=== PATIENT | female | born 1980 | race Caucasian/White ===

== ENCOUNTER 2021-01-03 12:53 | Emergency (ER) | payer OTHER, SELFPAY ==
[2021-01-03 13:59] VITALS: BP 131/91; PULSE 108; RESP 18; TEMP 36.5; O2SAT 100; BMI 25.3
--- NOTE | 2021-01-03 14:12 | ED.EPISTAXIS ---
History of Present Illness General Chief Complaint: Epistaxis Stated Complaint: nosebleed Time Seen by Provider: 01/03/21 14:05 Source: patient Mode of arrival: ambulatory Limitations: no limitations History of Present Illness Location: Yes bilateral nares Onset/current episode: Yes hour(s) (1) Duration: Yes now resolved Context: Yes history of previous nose bleed Treatment prior to arrival: Yes nose pinching Related Data Previous Rx's Medication Instructions Recorded amoxicillin 875 mg-potassium 1 tab PO BID #14 tab 01/03/21 clavulanate 125 mg tablet (Augmentin) hydrocodone 5 mg-acetaminophen 325 1 tab PO Q6H PRN #10 tab 01/03/21 mg tablet ondansetron 4 mg disintegrating 4 mg PO Q8H PRN #20 tab 01/03/21 tablet Allergies Allergy/AdvReac Type Severity Reaction Status Date / Time No Known Allergies Allergy Verified 01/03/21 14:16 Review of Systems Review of Systems: Constitutional : No Fever, No Chills ENT/Mouth : No Ear Pain, No Nasal Congestion, positive nose bleed Eyes: No Eye Pain, No Swelling, No Redness Cardiovascular : No Chest Pain, No SOB Respiratory : No Cough, No Sputum Gastrointestinal : No Nausea, No Vomiting, No Diarrhea Genitourinary : No Dysuria, No Hematuria Musculoskeletal : No joint pain, No Myalgias Skin : No Skin Lesions, No rash Neuro : No Weakness, No Numbness, No headache Psych : No Anxiety/Panic, No Depression Heme/Lymph: positive Bleeding,No Lymphadenopathy Endocrine : No Polyuria, No Polydipsia PMFSH Past Medical History Attestation statement: The following information was validated with the patient. Medical History Lupus Social History Social History (Updated 01/03/21 @ 14:24 by Carissa Nails DO) Patient Tobacco Use Status: Never used Tobacco Advance Directives: No Advance Directives Information Provided: No Patient : No Physical Exam Vital Signs: Vital Signs: Last Vital Signs Temp 97.7 F 01/03/21 13:59 Pulse 100 01/03/21 14:51 Resp 16 01/03/21 14:51 BP 140/87 H 01/03/21 14:51 Pulse Ox 98 01/03/21 14:51 Body Mass Index 25.3 Appearance: Alert. Oriented X3. No acute distress. Eyes: Pupils equal, round and reactive to light. ENT: Pharynx normal. no blood in oropharynx dried blood L nares, clot noted mid septum no bleeding R nare - resolved Neck: Normal inspection. Neck supple. CVS: Normal heart rate and rhythm. Pulses normal. Respiratory: No respiratory distress. Breath sounds normal. Abdomen: Soft and non-tender. Skin: Skin warm and dry. Normal skin color. Normal skin turgor. Extremities: No lower extremity edema. Neuro: Oriented X 3. No motor deficit. No sensory deficit. Course Course Course Narrative: no further bleeding noted - topical medications was resolved on arrival no bleeding x almost 3 hours stable for DC, the patient describes sinus like illness prior to this and blocked ears - no hemotympanum seen will treat for sinusitis MDM - Epistaxis MDM Narrative Medical decision making narrative: 40 female hx of lupus no prior issues with bleeding comes in with c/o bilateral epistaxis without trauma - at this time no sig bleeding it has mostly resolved, she denies trauma, no other reported bleeding - will try local measures and try to cauterize the area Lab Data Result diagrams: 01/03/21 14:26 Labs: Lab Results 01/03/21 01/03/21 Range/Units 14:26 14:26 WBC 9.1 (4.8-10.8) X10*3/uL RBC 4.48 (4.20-5.50) X10*6/uL Hgb 12.3 (12.0-16.0) g/dl Hct 37.8 (37-47) % MCV 84.4 (80-98) fL MCH 27.5 (27.0-33.0) pg MCHC 32.5 (31.0-35.0) g/dl RDW 14.4 (11.0-16.0) % Plt Count 296 (160-400) X10*3/uL MPV 10.3 (9.4-12.3) fL Immature Gran % (Auto) 0.3 (0.0-0.4) % Neut % (Auto) 66.8 (45-73) % Lymph % (Auto) 24.0 (20-40) % Mathews % (Auto) 7.5 (2-11) % Eos % (Auto) 1.1 (0-4) % Baso % (Auto) 0.3 (0-2) % Lymph # (Auto) 2.2 (1.2-4.9) X10*3/uL Mathews # (Auto) 0.7 (0.1-1.2) X10*3/uL Eos # (Auto) 0.1 (0.0-0.4) X10*3/uL Baso # (Auto) 0.0 (0.0-0.2) X10*3/uL Abs Immat Gran (auto) 0.03 (0.00-0.03) X10*3/uL Absolute Neuts (auto) 6.1 (2.0-8.3) X10*3/uL Absolute Nucleated RBC 0.000 (0.0-0.012) X10*3/uL Nucleated RBC % (auto) 0.0 (0.0-0.2) /100WBC PT 11.6 (9.9-13.0) SEC INR 1.0 (0.9-1.1) APTT 32.8 (24.1-38.0) SEC Procedures Epistaxis Control Time Out Performed: Yes Nostril: Yes bilateral Nose prepped with: Yes lidocaine and Yes oxymetazoline Direct inspection: Yes unable to visualize Direct inspection method: Yes nasal speculum Clots removed by: Yes suction Epistaxis treatment: Yes other (clamp and lidocaine with epi) Results of treatment: Yes bleeding controlled Complications: Yes none Discharge Plan Discharge Clinical Impression: Epistaxis Patient Disposition: Home, Self-Care Instructions: Sinusitis (ED), Nosebleed (ED) Additional Instructions: return to ED for any worsening symptoms or concerns no aspirin, aleve, motrin do not blow nose for 3 days if you bleed again get checked out you can apply 1 nasal spray twice a day no more than 3 days - can cause chronic runny nose Prescriptions: New hydrocodone-acetaminophen 5-325 mg tablet 1 tab PO Q6H PRN (Reason: pain) Qty: 10 RF: 0 ondansetron 4 mg tablet,disintegrating 4 mg PO Q8H PRN (Reason: nausea and vomiting) Qty: 20 RF: 0 amoxicillin-pot clavulanate [Augmentin] 875-125 mg tablet 1 tab PO BID Qty: 14 RF: 0 Stand Alone Forms: Work/School Release
[2021-01-03 14:30] LABS: MANUAL DIFF FLAG NO
[2021-01-03 14:33] LABS: Basophils Percent Auto 0.3 % (0-2); Eosinophils Absolute Auto 0.1 X10*3/uL (0.0-0.4); Eosinophils Percent Auto 1.1 % (0-4); Hematocrit 37.8 % (37-47); Hemoglobin 12.3 g/dl (12.0-16.0); Imm Gran Abs Auto 0.03 X10*3/uL (0.00-0.03); Imm Gran Pct Auto 0.3 % (0.0-0.4); Lymphocytes Absolute Auto 2.2 X10*3/uL (1.2-4.9); Mean Corpuscular HGB Conc 32.5 g/dl (31.0-35.0); Mean Corpuscular Hemoglobin 27.5 pg (27.0-33.0); Mean Corpuscular Volume 84.4 fL (80-98); Mean Platelet Volume 10.3 fL (9.4-12.3); Monocytes Absolute Auto 0.7 X10*3/uL (0.1-1.2); Monocytes Percent Auto 7.5 % (2-11); Neutrophils Absolute Auto 6.1 X10*3/uL (2.0-8.3); Neutrophils Percent Auto 66.8 % (45-73); Platelet Count 296 X10*3/uL (160-400); Red Blood Count 4.48 X10*6/uL (4.20-5.50); Red Cell Distribution Width 14.4 % (11.0-16.0); White Blood Count 9.1 X10*3/uL (4.8-10.8)
[2021-01-03 14:41] LABS: Prothrombin Time 11.6 SEC (9.9-13.0)
[2021-01-03 14:43] LABS: Partial Thromboplastin Time 32.8 SEC (24.1-38.0)
[2021-01-03 14:51] VITALS: BP 140/87; PULSE 100; RESP 16; O2SAT 98
[2021-01-03] MEDS: Lidocaine HCl 2%/Epi 1:100,000 20 ML VIAL INFILTRATI (14:56)
[2021-01-03] MEDS: Silver Nitrate Applicator STICK..EA. 1 APPL TOPICAL (14:56)
[2021-01-03] MEDS: Oxymetazoline HCl 0.05 % Nasal 15 ML SPRAY 2 SPRAY NOSTRIL-B (14:56)
[2021-01-03] MEDS: Ondansetron ODT 4 MG TAB.RAPDIS TRANSLINGU (15:44)
[2021-01-03] MEDS: HYDROcodone Bit/Acetam 5/325 TABLET 1 TAB PO (15:44)
== END 2021-01-03 16:55 | disposition home or self-care (01) ==
PROVIDERS: Emergency Provider Emergency Medicine; PCP Physician Assistant
DX: R04.0 Epistaxis (principal); M32.9 Systemic lupus erythematosus, unspecified
CPT/HCPCS: 36415; 85025; 85610; 85730; 99284